=== PATIENT | male | born 1970 | race Caucasian/White ===

== ENCOUNTER 2017-03-11 17:00 | Emergency (ER) | payer BC ==
--- NOTE | 2017-03-11 17:20 | EDM.PDOC ---
ED HPI GENERAL MEDICAL PROBLEM - General Chief Complaint: Cardiovascular Problem Stated Complaint: IRREGULAR HEART BEAT Time Seen by Provider: 03/11/17 17:32 Source of Information: Reports: Patient History Limitations: Reports: No Limitations - History of Present Illness INITIAL COMMENTS - FREE TEXT/NARRATIVE: History of present illness: [] Patient has had 2 weeks of intermittent fluttering of his heart after having a stressor at work. Fluttering lasts a few seconds is not associated with chest pain, shortness of breath, dizziness or nausea or vomiting. He states at times he gets lightheaded but is very mild. His last episode was 2 days ago however his insisted he come to the ER today and get it checked out. He should states stress or work was alleviated today and he feels the best he has ever felt in the past 2 weeks right now. Review of systems: As per history of present illness and below otherwise all systems reviewed and negative. Past medical history: As per history of present illness and as reviewed below otherwise noncontributory. Surgical history: As per history of present illness and as reviewed below otherwise noncontributory. Social history: No reported history of drug or alcohol abuse. Family history: As per history of present illness and as reviewed below otherwise noncontributory. Physical exam: General: Well developed, well nourished in NAD HEENT: Atraumatic, normocephalic, pupils reactive, negative for conjunctival pallor or scleral icterus, mucous membranes moist, throat clear, neck supple, nontender, trachea midline. Lungs: Clear to auscultation, breath sounds equal bilaterally, chest nontender. Heart: S1S2, regular, negative for clicks, rubs, or JVD. Abdomen: Soft, nondistended, nontender. Negative for masses or hepatosplenomegaly. Negative for costovertebral tenderness. Pelvis: Stable nontender. Genitourinary: Deferred. Rectal: Deferred. Extremities: Atraumatic, negative for cords or calf pain. Neurovascular unremarkable. Neuro: Awake, alert, oriented. Cranial nerves II through XII unremarkable. Cerebellum unremarkable. Motor and sensory unremarkable throughout. Exam nonfocal. Diagnostics: [] EKG shows normal sinus rhythm no acute ischemia is noted to be hypertensive on the monitor at 160s over 80s Therapeutics: [] Impression: [] Uncontrolled hypertension, palpitations Plan: [] Followup PMD for blood pressure evaluation return if symptoms recur or worsen Definitive disposition and diagnosis as appropriate pending reevaluation and review of above. - Related Data Allergies Allergy/AdvReac Type Severity Reaction Status Date / Time No Known Allergies Allergy Verified 03/11/17 17:26 Home Meds: Home Meds . [No Known Home Meds] 03/11/17 [History] ED ROS GENERAL - Review of Systems Review Of Systems: See Below (See history of present illness) ED EXAM, GENERAL - Physical Exam Exam: See Below (See history of present illness) Course - Vital Signs Last Recorded V/S: Last Vital Signs Temp 36.2 C 03/11/17 17:38 Pulse 78 03/11/17 17:38 Resp 16 03/11/17 17:38 BP 167/85 H 03/11/17 17:38 Pulse Ox 98 03/11/17 17:38 - Orders/Labs/Meds Orders: Active Orders 24 hr Category Date Time Status Chest 1V Frontal [CR] Stat Exams 03/11/17 17:31 Taken COMPREHENSIVE METABOLIC PN,CMP [CHEM] Stat Lab 03/11/17 17:38 Results TSH [CHEM] Stat Lab 03/11/17 17:38 Results Labs: Laboratory Tests 03/11/17 03/11/17 03/11/17 Range/Units 17:38 17:38 17:38 WBC 6.77 (4.0-11.0) K/uL RBC 5.31 (4.50-5.90) M/uL Hgb 15.9 (13.0-17.0) g/dL Hct 46.3 (38.0-50.0) % MCV 87.2 (80.0-98.0) fL MCH 29.9 (27.0-32.0) pg MCHC 34.3 (31.0-37.0) g/dL RDW Std Deviation 41.6 (28.0-62.0) fl RDW Coeff of Alena 13 (11.0-15.0) % Plt Count 201 (150-400) K/uL MPV 9.40 (7.40-12.00) fL Neut % (Auto) 64.2 (48.0-80.0) % Lymph % (Auto) 24.5 (16.0-40.0) % [place] % (Auto) 8.7 (0.0-15.0) % Eos % (Auto) 2.2 (0.0-7.0) % Baso % (Auto) 0.4 (0.0-1.5) % Neut # (Auto) 4.3 (1.4-5.7) K/uL Lymph # (Auto) 1.7 (0.6-2.4) K/uL [place] # (Auto) 0.6 (0.0-0.8) K/uL Eos # (Auto) 0.2 (0.0-0.7) K/uL Baso # (Auto) 0.0 (0.0-0.1) K/uL Nucleated RBC % 0.0 /100WBC Nucleated RBCs # 0 K/uL Sodium 140 (136-146) mmol/L Potassium 3.8 (3.5-5.1) mmol/L Chloride 110 (98-110) mmol/L Carbon Dioxide 21 (21-31) mmol/L BUN 19 (6.0-23.0) mg/dL Creatinine 1.0 (0.6-1.5) mg/dL Est Cr Clr Drug Dosing 107.32 mL/min Estimated GFR (MDRD) > 60.0 ml/min Glucose 128 H (60-110) mg/dL Calcium 9.4 (8.8-10.8) mg/dL Total Bilirubin 0.5 (0.1-1.5) mg/dL AST 21 (5-40) IU/L ALT 27 (8-54) IU/L Alkaline Phosphatase 58 (40-150) Troponin I < 0.10 (0.0-0.29) NG/ML Total Protein 7.5 (6.0-8.0) g/dL Albumin 4.7 (3.5-5.0) g/dL Globulin 2.8 (2.0-3.5) g/dL Albumin/Globulin Ratio 1.7 (1.3-2.8) Departure - Departure Time of Disposition: 18:29 Disposition: Home, Self-Care 01 Condition: good Clinical Impression: Palpitations Referrals: Raad Boogie MD [Primary Care Provider] - Forms: ED Department Discharge Additional Instructions: The following information is given to patients seen in the emergency department who are being discharged to home. This information is to outline your options for follow-up care. We provide all patients seen in our emergency department with a follow-up referral. The need for follow-up, as well as the timing and circumstances, are variable depending upon the specifics of your emergency department visit. If you don't have a primary care physician on staff, we will provide you with a referral. We always advise you to contact your personal physician following an emergency department visit to inform them of the circumstance of the visit and for follow-up with them and/or the need for any referrals to a consulting specialist. The emergency department will also refer you to a specialist when appropriate. This referral assures that you have the opportunity for follow-up care with a specialist. All of these measure are taken in an effort to provide you with optimal care, which includes your follow-up. Under all circumstances we always encourage you to contact your private physician who remains a resource for coordinating your care. When calling for follow-up care, please make the office aware that this follow-up is from your recent emergency room visit. If for any reason you are refused follow-up, please contact the [facility] Emergency Department at and asked to speak to the emergency department charge nurse. Followup the primary care physician for further blood pressure evaluation and treatment. Affect - My Orders Last 24 Hours: My Active Orders 03/11/17 17:31 Chest 1V Frontal [CR] Stat 03/11/17 17:38 COMPREHENSIVE METABOLIC PN,CMP [CHEM] Stat TSH [CHEM] Stat - Assessment/Plan Last 24 Hours: My Active Orders 03/11/17 17:31 Chest 1V Frontal [CR] Stat 03/11/17 17:38 COMPREHENSIVE METABOLIC PN,CMP [CHEM] Stat TSH [CHEM] Stat
[2017-03-11 18:21] LABS: CHLORIDE,CL 110 mmol/L (98-110); SODIUM,NA 140 mmol/L (136-146)
[2017-03-11 18:49] VITALS: BP 136/83
--- NOTE | 2017-03-14 14:25 | CR ---
EXAM DATE: 03/11/17 PATIENT'S AGE: 46 Patient: PRASANNA BARTON Facility: [place], [place] Site . Site : [id number] Study: XRay Chest [id number]/12/2017 5:54:09 PM Ordering Physician: Jim Woodall Final Report: INDICATION: palpitations, possible anxiety TECHNIQUE: Chest 1 view COMPARISON: None FINDINGS: Cardiovascular and mediastinum: Heart size and vasculature are normal in caliber and appearance. Mediastinum is within normal limits. Lungs and pleural space: No focal consolidation. No sign of pleural effusion. No pneumothorax. Bones and soft tissues: No significant findings. IMPRESSION: No acute cardiopulmonary disease. Dictated by Gene Marroquin MD @ 03/11/2017 6:37:49 PM Dictated by: Gene Marroquin MD @ 03/11/2017 18:39:00 (Electronic Signature) Report Signed by Proxy. [email or web address]
== END 2017-03-11 18:47 | disposition home or self-care (01) ==
LOC: MW.ED 17:00
DX: R00.2 Palpitations (principal); I10 Essential (primary) hypertension
CPT/HCPCS: 36415; 71010; 71010-26; 80053; 84443; 84484; 85025; 93005; 99283; 99285-25